=== PATIENT | male | born 1945 | race Caucasian/White ===

== ENCOUNTER → 2023-10-11 | Emergency (ER) | payer OTHER ==
[~2023-10-11] MED LIST: MECLIZINE HCL 12.5 MG TAB ONE; NA CHLORIDE 0.9% 500 ML ONE
--- NOTE | 2023-10-11 11:19 | RAD REPORT ---
EXAM DESCRIPTION: CT - Ct Stroke Brain Wo Cont - 10/11/2023 11:10 am CLINICAL HISTORY: STROKE ALERT COMPARISON: No comparisons TECHNIQUE: All CT scans are performed using dose optimization technique as appropriate and may inclu de automated exposure control or mA/KV adjustment according to patient size. FINDINGS: No intracranial hemorrhage, hydrocephalus or extra-axial fluid collection.No areas of brai n edema or evidence of midline shift. The paranasal sinuses and mastoids are clear. The calvarium is intact. IMPRESSION: No acute intracranial abnormality. Conveyed to Dr. Mendez by Dr. Gautam at 1114 on 10/11/23
--- NOTE | 2023-10-11 12:10 | RAD REPORT ---
EXAM DESCRIPTION: MRI - Brain Wo Cont - 10/11/2023 11:55 am CLINICAL HISTORY: DIZZINESS COMPARISON: No comparisons TECHNIQUE: Sagittal T1-weighted images were obtained along with PD/heavily T2-weighted and T2-FLAIR images. Axial DWI and ADC mapping sequences were also obtained along with coronal heavily T2-weighted images were obtained. FINDINGS: No intracranial hemorrhage, mass or acute infarction. There is no edema or shift of midlin e structures. No extra-axial fluid collections. Signal voids are seen as a normal finding in the hu r intracranial vessels. Mild chronic small vessel ischemic changes. Cerebral atrophy. Mild ethmoid air cell thickening. No mastoid effusion. IMPRESSION: No acute intracranial abnormality. Specifically, no evidence of acute infarct.
[2023-10-11 12:18] LABS: Hematocrit 42.2 % (39.6-49.0); Lymphocytes % 14.7 % (15.3-44.8); MCV 93.5 fL (80-100); MPV 7.5 fL (7.6-11.3); Platelets 216 thou/uL (152-406); RBC Red Blood Cell Count 4.51 M/uL (4.33-5.43)
[2023-10-11 12:25] LABS: Protime INR 1.28
[2023-10-11 12:37] LABS: Potassium 4.1 mEq/L (3.5-5.1); Troponin High Sensitivity 18.5 pg/mL (<58.9)
--- NOTE | 2023-10-11 13:34 | RAD REPORT ---
EXAM DESCRIPTION[facility] 1:14 pm CLINICAL HISTORY: dizzines COMPARISON: Chest Single View dated 03/26/2023; CHEST SINGLE VIEW dated 01/29/2009 TECHNIQUE: Portable AP view of the chest. FINDINGS: The lungs are clear. No pneumothorax or effusion. The cardiomediastinal contours are unre markable. IMPRESSION: No acute cardiopulmonary process.
--- NOTE | 2023-10-11 15:00 | EDPHYS ---
Physician Documentation [facility] Name: Alvaro Gross Age: 78 yrs Sex: Male : 1945 Arrival Date: 10/11/2023 Time: 10:36 Bed 4 Private MD: Jacob Sanchez C ED Physician Rashad Mendez HPI: 10/11 14:25 This 78 yrs old Male presents to ER via Ambulatory with complaints of Dizziness. ms3 14:25 78-year-old male with past medical history of diabetes, gout, hypertension [place] [facility] [place] emergency department for dizziness that began last night. Patient notes he also had similar symptoms 1 week ago. Patient was at his primary care physician's officeDr. Italo was laid flat for a blood pressure and the room began spinning and he broke out in sweats. Patient denies nausea vomiting, pain. Historical: - Allergies: 10:51 Adhesives; ll1 - PMHx: 10:51 Diabetes - NIDDM; Gout; Hypertension; ll1 - Immunization history:: Adult Immunizations up to date. - Social history:: Smoking status: Patient denies any tobacco usage or history of. ROS: 14:25 Constitutional: Negative for fever, and chills. Neck: Negative for injury, pain, and ms3 swelling, Cardiovascular: Negative for chest pain, and palpitations. Respiratory: Negative for shortness of breath, cough, wheezing, and pleuritic chest pain, Abdomen/GI: Negative for abdominal pain, nausea, vomiting, diarrhea, and constipation, MS/Extremity: Negative for injury and deformity, Skin: Negative for injury, rash, and discoloration, 14:25 Neuro: Positive for dizziness, 14:25 All other systems are negative, Exam: 12:16 ECG was reviewed by the Attending Physician. ms3 14:25 Constitutional: This is a well developed, well nourished patient who is awake, alert, ms3 and in no acute distress. Neck: Trachea midline, no cervical lymphadenopathy. Supple, full range of motion without nuchal rigidity, or vertebral point tenderness. No Meningismus. Chest/axilla: Normal chest wall appearance and motion. Nontender with no deformity. Cardiovascular: Regular rate and rhythm with a normal S1 and S2. No gallops, murmurs, or rubs. Normal PMI, no JVD. No pulse deficits. Respiratory: Lungs have equal breath sounds bilaterally, clear to auscultation and percussion. No rales, rhonchi or wheezes noted. No increased work of breathing, no retractions or nasal flaring. Abdomen/GI: Soft, non-tender, with normal bowel sounds. No distension or tympany. No guarding or rebound. No evidence of tenderness throughout. Skin: Warm, dry with normal turgor. Normal color with no rashes, no lesions, and no evidence of cellulitis. MS/ Extremity: Pulses equal, no cyanosis. Neurovascular intact. Full, normal range of motion. 14:25 Neuro: Orientation: is normal, to person, place, time \T\ situation. Mentation: is normal, Memory: is normal, Cranial nerves: CN I not tested, CN II- XII are normal as tested, Cerebellar function: normal finger to nose testing, Motor: is normal, Sensation: is normal, no obvious gross deficits, Vital Signs: 11:06 BP 147 / 80; Pulse 76; Resp 18; Temp 98.1; Pulse Ox 97% ; cp4 12:00 BP 139 / 82; Pulse 70; Resp 18; Pulse Ox 98% ; cp4 13:00 BP 116 / 74; Pulse 75; Resp 18; Pulse Ox 97% ; cp4 14:00 BP 116 / 77; Pulse 77; Resp 18; Pulse Ox 97% ; cp4 15:16 BP 107 / 67; Pulse 74; Resp 18; Pulse Ox 98% ; cp4 NIH Stroke Scale Scores: 11:30 NIHSS Score: 0 cp4 MDM: 11:01 Patient medically screened. ms3 14:24 Management of patient was discussed with the following: Primary Care Provider: ms3 Discussed case with Dr Sanchez and would like patient to get 500 mL NS bolus and patient can follow up in clinic next week.. 14:25 Differential diagnosis: cardiac arrhythmia, CVA, idiopathic dizziness. Data reviewed: ms3 vital signs, nurses notes, lab test result(s), EKG, radiologic studies, and as a result, I will discharge patient. Consideration of Admission/Observation Escalation of care including admission/observation considered. MRI Negative. I considered the following discharge prescriptions or medication management in the emergency department Medications were administered in the Emergency Department. See MAR. Independent interpretation of the following test(s) in the Emergency Department EKG: See my EKG interpretation above. Counseling: I had a detailed discussion with the patient and/or guardian regarding the historical points, exam findings, and any diagnostic results supporting the discharge/admit diagnosis, lab results, radiology results, the need for outpatient follow up, to return to the emergency department if symptoms worsen or persist or if there are any questions or concerns that arise at home. Response to treatment: the patient's symptoms have mildly improved after treatment, and as a result, I will discharge patient. ED course: Discussed labs, MRI, EKG, CT scans with patient and his family. Patient to follow-up Dr. Sanchez next week. Patient understands agrees with plan. All questions were answered. Return precautions discussed include worsening symptoms, or any other concerns. On reevaluation patient symptoms improved, patient is alert and orient x 4, no apparent distress, nontoxic-appearing, ambulatory number department. 10/11 11:01 Order name: Basic Metabolic Panel; Complete Time: 13:03 ms3 10/11 11:01 Order name: CBC with Diff; Complete Time: 13:03 ms3 10/11 11:01 Order name: High Sensitivity Troponin; Complete Time: 13:03 ms3 10/11 11:01 Order name: Protime (+inr); Complete Time: 13:03 ms3 10/11 11:01 Order name: Ptt, Activated; Complete Time: 13:03 ms3 10/11 11:01 Order name: CT Stroke Brain w/o Contrast; Complete Time: 13:03 ms3 10/11 11:01 Order name: Stroke CXR 1 View; Complete Time: 14:22 ms3 10/11 11:33 Order name: Brain Wo Cont; Complete Time: 13:03 EDMS 10/11 11:01 Order name: EKG; Complete Time: 11:02 ms3 10/11 11:01 Order name: Accucheck; Complete Time: 12:09 ms3 10/11 11:01 Order name: Cardiac monitoring; Complete Time: 11:28 ms3 10/11 11:01 Order name: EKG - Nurse/Tech; Complete Time: 12:18 ms3 10/11 11:01 Order name: IV Saline Lock; Complete Time: 12:09 ms3 10/11 11:01 Order name: Labs collected and sent; Complete Time: 12:09 ms3 10/11 11:01 Order name: NPO; Complete Time: 11: ms3 10/11 11:01 Order name: O2 Per Protocol; Complete Time: ms3 10/11 11: Order name: O2 Sat Monitoring; Complete Time: ms3 10/11 11: Order name: Stroke Swallow Screen; Complete Time: : ms3 EC:16 Rate is 70 beats/min. Rhythm is regular. QRS [place] is Normal. MT interval is normal. QRS ms3 interval is normal. Clinical impression: NSR w/ Non-specific ST/T Changes. Interpreted by me. Reviewed by me. Administered Medications: 14:46 Drug: Meclizine PO 50 mg PO once Route: PO; cp4 14:46 Drug: NS 0.9% IV 500 ml IV at bolus once Route: IV; Rate: bolus; Site: right cp4 antecubital; Point of Care Testing: Blood Glucose: 12:54 Blood Glucose: 167 mg/dL; cp4 Ranges: Critical Glucose Levels:Adult <50 mg/dl or >400 mg/dl <40 mg/dl or >180 mg/dl Disposition Summary: 10/11/23 14:59 Discharge Ordered Notes: Location: Home ms3 Condition: Stable ms3 Diagnosis - Dizziness ms3 - Chronic kidney disease, unspecified ms3 Followup: ms3 - With: Jacob Sanchez MD - When: 2 - 3 days - Reason: Re-evaluation by your physician Discharge Instructions: - Discharge Summary Sheet ms3 - Dizziness, [id number] ms3 Forms: - Medication Reconciliation Form ms3 - Thank You Letter ms3 - Antibiotic Education ms3 - Prescription Opioid Use ms3 - Patient Portal Instructions ms3 - Leadership Thank You Letter ms3 Prescriptions: - Meclizine 25 mg Oral Tablet - take 1 tablet ORAL route every 8 hours As needed; 30 tablet; Refills: 0, ms3 Product Selection Permitted NIH Stroke Scale - NIH Stroke Score Date: 10/11/2023 Time: 11:30 Total Score = 0 10. Dysarthria (speech clarity - read or repeat words) - 0(Normal) 11. Extinction and Inattention (visual/tactile/auditory/spatial/personal) - 0(No abnormality) 1a. Level of Consciousness (LOC) - 0(Alert) 1b. Level of Consciousness (LOC) (Month \T\ Age) - 0(Both) 1c. LOC Commands (Open \T\ Closes Eyes/Topographic Computator) - 0(Both) 2. Best Gaze (Lateral Gaze Paresis) - 0(Normal) 3. Visual Field Loss - 0(No visual loss) 4. Facial Palsy - 0(Normal) 5a. Left Arm: Motor (10-second hold) - 0(No drift) 5b. Right Arm: Motor (10-second hold) - 0(No drift) 6a. Left Leg: Motor (5-second hold - always test supine) - 0(No drift) 6b. Right Leg: Motor (5-second hold - always test supine) - 0(No drift) 7. Limb Ataxia (finger/nose \T\ heel/salgado - test with eyes open) - 0(Absent) 8. Sensory Loss (pinprick arms/legs/face) - 0(Normal) 9. Best Language: Aphasia (description/naming/reading) - 0(No aphasia) Initials: cp4 Signatures: Dispatcher [employer] EDMS Kody Franco, MILADY RN ll1 Rashad Mendez DO DO ms3 Zulema Werner cp4 Corrections: (The following items were deleted from the chart) 11:33 11:02 MR STROKE PROTOCOL+MRI.RAD.EDILMA ordered. EDMS EDMS
--- NOTE | 2023-10-11 15:00 | ER ---
Nurse's Notes [facility] Name: Alvaro Gross Age: 78 yrs Sex: Male : 1945 Arrival Date: 10/11/2023 Time: 10:36 Bed 4 Private MD: Jacob Sanchez C Diagnosis: Dizziness;Chronic kidney disease, unspecified Presentation: 10/11 11:06 Chief complaint: Patient states: dizziness that started last night. Was sent by Laura. cp4 Coronavirus screen: Client denies travel out of the [place] in the last 14 days. At this time, the client does not indicate any symptoms associated with coronavirus-19. Ebola Screen: Patient negative for fever greater than or equal to 101.5 degrees Fahrenheit, and additional compatible Ebola Virus Disease symptoms Patient denies exposure to infectious person. Patient denies travel to an Ebola-affected area in the 21 days before illness onset. No symptoms or risks identified at this time. 11:06 Method Of Arrival: Ambulatory 4 11:24 No acute neurological deficit is noted. Pre-hospital glucose is not applicable to this cp4 patient. Initial Sepsis Screen: Does the patient meet any 2 criteria? No. Patient's initial sepsis screen is negative. Does the patient have a suspected source of infection? No. Patient's initial sepsis screen is negative. Risk Assessment: Do you want to hurt yourself or someone else? Patient reports no desire to harm self or others. Onset of symptoms was October 10, 2023. 11:24 Acuity: CHLOE 3 cp4 Triage Assessment: 11:24 The onset of the patients symptoms was October 10, 2023 at 20:00. General: Appears in cp4 no apparent distress. Behavior is calm, cooperative, appropriate for age. Pain: Denies pain. Neuro: No deficits noted. Reports dizziness, since yesterday. Historical: - Allergies: 10:51 Adhesives; ll1 - PMHx: 10:51 Diabetes - NIDDM; Gout; Hypertension; ll1 - Immunization history:: Adult Immunizations up to date. - Social history:: Smoking status: Patient denies any tobacco usage or history of. Screenin:30 [facility] ED Fall Risk Assessment (Adult) History of falling in the last 3 months, cp4 including since admission No falls in past 3 months (0 pts) Confusion or Disorientation No (0 pts) Intoxicated or Sedated No (0 pts) Impaired Gait No (0 pts) Mobility Assist Device Used No (0 pt) Altered Elimination No (0 pt) Score/Fall Risk Level 0 - 2 = Low Risk Oriented to surroundings, Maintained a safe environment, Educated pt \T\ family on fall prevention, incl call for assistance when getting out of bed, Assessed \T\ reinforced patient's understanding of fall precautions, Provided non-skid footwear, Hourly rounding (assess needs \T\ fall precautionary measures) done. Abuse screen: Denies threats or abuse. Nutritional screening: No deficits noted. Tuberculosis screening: No symptoms or risk factors identified. Assessment: 11:30 VAN Scoring: Arm Drift: Patients demonstrates NO arm weakness. Patient is VAN Negative. cp4 [place] Swallow Protocol Exclusion Criteria: Unable to remain alert for testing: No NPO for medical/surgical reason by provider order No Head-of-bed restricted <30 degrees Tracheostomy tube present No No thin liquids due to preexisting dysphagia/baseline modified diet thickened liquids No Exclusion Criteria Result: Proceed. Vital Signs: 11:06 BP 147 / 80; Pulse 76; Resp 18; Temp 98.1; Pulse Ox 97% ; cp4 12:00 BP 139 / 82; Pulse 70; Resp 18; Pulse Ox 98% ; cp4 13:00 BP 116 / 74; Pulse 75; Resp 18; Pulse Ox 97% ; cp4 14:00 BP 116 / 77; Pulse 77; Resp 18; Pulse Ox 97% ; cp4 15:16 BP 107 / 67; Pulse 74; Resp 18; Pulse Ox 98% ; cp4 NIH Stroke Scale Scores: 11:30 NIHSS Score: 0 cp4 ED Course: 10:38 Patient arrived in ED. rg4 10:38 Jacob Sanchez MD is Private Physician. rg4 10:51 Arm band placed on Patient placed in an exam room, on a stretcher. ll1 10:53 Rashad Mendez DO is Attending Physician. ms3 11:05 Zulema Werner is Primary Nurse. cp4 11:12 CT Stroke Brain w/o Contrast In Process Unspecified. EDMS 11:26 Triage completed. cp4 11:30 Patient has correct armband on for positive identification. Bed in low position. Call cp4 light in reach. Side rails up X2. 11:48 Brain Wo Cont In Process Unspecified. EDMS 12:09 Basic Metabolic Panel Sent. cp4 12:09 CBC with Diff Sent. cp4 12:09 High Sensitivity Troponin Sent. cp4 12:09 Protime (+inr) Sent. cp4 12:09 Ptt, Activated Sent. cp4 12:10 Inserted saline lock: 20 gauge in right antecubital area, using aseptic technique. cp4 Blood collected. 13:15 Stroke CXR 1 View In Process Unspecified. EDMS 14:59 Jacob Sanchez MD is Referral Physician. ms3 15:17 Provided Education on: dizziness.. cp4 15:17 No provider procedures requiring assistance completed. intact, bleeding controlled, No cp4 redness/swelling at site. Pressure dressing applied. Administered Medications: 14:46 Drug: Meclizine PO 50 mg PO once Route: PO; cp4 14:46 Drug: NS 0.9% IV 500 ml IV at bolus once Route: IV; Rate: bolus; Site: right cp4 antecubital; Medication: 11:30 VIS not applicable for this client. cp4 Point of Care Testing: Blood Glucose: 12:54 Blood Glucose: 167 mg/dL; cp4 Ranges: Outcome: 14:59 Discharge ordered by MD. ms3 15:17 Discharged to home ambulatory, cp4 15:17 Condition: stable 15:17 Discharge instructions given to patient, Instructed on discharge instructions, follow up and referral plans. Demonstrated understanding of instructions, follow-up care, medications, Prescriptions given X 1, 15:20 Patient left the ED. cp4 NIH Stroke Scale - NIH Stroke Score Date: 10/11/2023 Time: 11:30 Total Score = 0 10. Dysarthria (speech clarity - read or repeat words) - 0(Normal) 11. Extinction and Inattention (visual/tactile/auditory/spatial/personal) - 0(No abnormality) 1a. Level of Consciousness (LOC) - 0(Alert) 1b. Level of Consciousness (LOC) (Month \T\ Age) - 0(Both) 1c. LOC Commands (Open \T\ Closes Eyes/Core Driller) - 0(Both) 2. Best Gaze (Lateral Gaze Paresis) - 0(Normal) 3. Visual Field Loss - 0(No visual loss) 4. Facial Palsy - 0(Normal) 5a. Left Arm: Motor (10-second hold) - 0(No drift) 5b. Right Arm: Motor (10-second hold) - 0(No drift) 6a. Left Leg: Motor (5-second hold - always test supine) - 0(No drift) 6b. Right Leg: Motor (5-second hold - always test supine) - 0(No drift) 7. Limb Ataxia (finger/nose \T\ heel/salgado - test with eyes open) - 0(Absent) 8. Sensory Loss (pinprick arms/legs/face) - 0(Normal) 9. Best Language: Aphasia (description/naming/reading) - 0(No aphasia) Initials: cp4 Signatures: Dispatcher [employer] Mona Bautista rg4 Kody Franco RN RN ll1 Rashad Mendez DO DO ms3 Zulema Werner cp4
[2023-10-11 16:49] VITALS: BP 147/80; TEMP 98.1; O2SAT 97
--- NOTE | 2023-10-15 15:14 | EKG ---
Test Date: 2023-10-11 Test Time: 12:16:26 It Consultant: SANGEETHA MEASUREMENT RESULTS: Intervals: Rate: 70 RI: 172 QRSD: 82 QT: 392 QTc: 423 [place]: P: 15 RI: 172 QRS: 3 T: 47 INTERPRETIVE STATEMENTS: Normal sinus rhythm Low voltage QRS Cannot rule out Anterior infarct, age undetermined Abnormal ECG Compared to ECG 03/26/2023 13:20:06 Myocardial infarct finding now present Atrial flutter no longer present Electronically Signed On 10-15-23 15:03:33 [employer] MANAGER by Tobias Martin
== END ==
LOC: ER 10:36
DX: R42 Dizziness and giddiness (principal); E11.22 Type 2 diabetes mellitus with diabetic chronic kidney disease; I12.9 Hypertensive chronic kidney disease with stage 1 through stage 4 chronic kidney disease, or unspecified chronic kidney disease; N18.9 Chronic kidney disease, unspecified; Z88.8 Allergy status to other drugs, medicaments and biological substances
CPT/HCPCS: 93005; 85025; 80048; 36415; 85610; 85730; 84484; 70450; 71045; 70551; J8597; J7040